=== PATIENT | male | born 1945 | race Caucasian/White ===

== ENCOUNTER 2024-08-20 21:58 | Emergency (ER) | payer MEDICARE, SELFPAY ==
[2024-08-20 21:59] VITALS: BP 189/67; BMI 39.5
[2024-08-20 22:00] VITALS: BP 189/67
--- NOTE | 2024-08-20 22:08 | ED.GENMED ---
History of Present Illness
<MERLE Vargas - Last Filed: 08/21/24 03:24>
General
Chief Complaint: Weakness
Source: patient
Exam Limitations: none
Time Seen by Provider: 08/20/24 22:06
Nursing documentation reviewed up to this point in time: agreed with
History of Present Illness
History of Present Illness:
Patient is a 79yo M who presents to ED via EMS for weakness x1 hr. He was getting ready for bed when his legs suddenly felt weak and he fell to his knee. He states he dropped slowly and did not injury his knees. He was unable to get up once he went
down on knees. He denies dizziness, syncope, chest pain, and SOB. He states he feels fine currently sitting down and is able to move legs. He denies any recent drinking, smoking, or drug use. Reports taking medications as directed w/o missing doses.
Hx of herniated disc w/ R sided ablation about 4 wks ago. Procedure was successful w/o complication. Pt denies incr in back pain.
Past History
<MERLE Vargas - Last Filed: 08/21/24 03:24>
Past History
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
ED Past Surgical History: Other (traumatic loss of distal phalanxes in R hand 2-4 th fingers)
Social History
Tobacco: Non-smoker
Alcohol: None
Drug: None
Personal:
Living: with family
Employment: Employed (Part-time employed at a local [employer])
Family History
Family History: Other (reviewed and non-contributory)
Review of Systems
<MERLE Vargas - Last Filed: 08/21/24 03:24>
Review of Systems
Constitutional: Denies fever, fatigue or chills
EENT: Denies sore throat or runny nose
Respiratory: Denies cough or trouble breathing
Cardiac: Denies chest pain or palpitations
ABD/GI: Denies abdominal pain, nausea, vomiting, diarrhea or constipated
: Denies dysuria or incontinence
Musculoskeletal: Reports edema and back pain; Denies joint pain or muscle pain
Neurological: Reports weakness; Denies dizzy, headache or numbness
Phy Exam
<Margo Sanabria [facility] - Last Filed: 08/21/24 03:24>
General Physical Exam
General Presentation: no apparent distress
General age: appears stated age
General Skin: warm and dry
General Habitus: normal
General Mental: alert
Eye Exam
Eye Exam: PERRL
Cardiovascular Exam
Cardiovascular Exam: regular rate/rhythm, no edema, no gallop and no murmur
Heart Sounds: distant
Pulmonary Exam
Pulmonary Exam: lungs clear, no respiratory distress, no rales, no crackles, no rhonchi and no wheezing
Gastrointestinal Exam
Gastrointestinal Exam: normal bowel sounds, non tender, soft and non distended
Neurological Exam
Neurological Exam: alert, oriented x3, no motor deficits and speech normal
Musculoskeletal Exam
Musculoskeletal Exam: full ROM and other (positive R leg straight leg raise )
Course
<Margo Sanabria [facility] - Last Filed: 08/21/24 03:24>
Orders/Labs/Results
Orders:
Orders
08/20/24 22:04
Electrocardiogram (*1) Urgent
Reason for Study: Fatigue / Weakness
Cardiac Monitoring- Treatment ONCE
EKG- Treatment ONCE
08/20/24 22:07
CMP [Comprehensive Metabolic Panel] Urgent
Complete Blood Count/With Diff Urgent
Urinalysis Reflex To Culture Urgent
Date Specimen was Collected: 08/20/24
Time Specimen was Collected: 22:05
Urine Microscopic Reflex Cult Urgent
08/20/24 23:24
0.9% Sodium Chloride 1000 ml [Nss] 1,000 ml IV BOLUS
08/21/24 00:59
Bedside Glucose Monitoring-ONCE As Directed
08/21/24 01:15
Add On- LAB Urgent
Tests Added?: beta hydroxybuterate
08/21/24 01:29
Insulin Human Regular [Novolin R] 10 units IV NOW STA
Abnormal Lab Results
08/20/24 08/21/24 08/21/24
22:07 01:01 EST 02:23
RBC 3.51 L 10^6/uL
(4.70-6.10)
Hgb 10.9 L g/dL
(13.0-18.0)
Hct 31.1 L %
(39.0-52.0)
MCH 31.1 H pg
(27.0-31.0)
MPV 10.9 H fL
(7.4-10.4)
Absolute Lymphs (auto) 1.0 L 10^3/uL
(1.2-3.4)
Neutrophils % 78.1 H %
(42.2-75.2)
Lymphocytes % 12.9 L %
(20.5-51.1)
BUN 49 H mg/dl
(9-20)
Creatinine 2.1 H mg/dL
(0.7-1.3)
Glucose 415 H mg/dl
(70-99)
Ur Occult Blood Reflex 1+ A
(Negative)
Urine Glucose 3+ A
(Negative)
Urine Albumin (Reflex) 2+ A
(Neg - Trace)
POC Glucose 354 H mg/dl 231 H mg/dl
(70-99) (70-99)
08/20/24 22:07
08/20/24 22:07
Vital Signs
Initial and Last Documented VS:
Initial Vital Signs
Temp Pulse Resp BP Pulse Ox
97.5 F 71 20 189/67 96
08/20/24 21:59 08/20/24 21:59 08/20/24 21:59 08/20/24 21:59 08/20/24 21:59
Last Documented Vital Signs
Temp Pulse Resp BP Pulse Ox
97.5 F 61 17 159/57 99
08/20/24 21:59 08/21/24 03:00 08/21/24 02:15 08/21/24 03:00 08/21/24 03:00
<Jim Biswas, - Last Filed: 08/21/24 02:58>
Orders/Labs/Results
Orders:
Orders
08/20/24 22:04
Electrocardiogram (*1) Urgent
Reason for Study: Fatigue / Weakness
Cardiac Monitoring- Treatment ONCE
EKG- Treatment ONCE
08/20/24 22:07
CMP [Comprehensive Metabolic Panel] Urgent
Complete Blood Count/With Diff Urgent
Urinalysis Reflex To Culture Urgent
Date Specimen was Collected: 08/20/24
Time Specimen was Collected: 22:05
Urine Microscopic Reflex Cult Urgent
08/20/24 23:24
0.9% Sodium Chloride 1000 ml [Nss] 1,000 ml IV BOLUS
08/21/24 00:59
Bedside Glucose Monitoring-ONCE As Directed
08/21/24 01:15
Add On- LAB Urgent
Tests Added?: beta hydroxybuterate
08/21/24 01:29
Insulin Human Regular [Novolin R] 10 units IV NOW STA
Abnormal Lab Results
08/20/24 08/21/24 08/21/24
22:07 01:01 EST 02:23
RBC 3.51 L 10^6/uL
(4.70-6.10)
Hgb 10.9 L g/dL
(13.0-18.0)
Hct 31.1 L %
(39.0-52.0)
MCH 31.1 H pg
(27.0-31.0)
MPV 10.9 H fL
(7.4-10.4)
Absolute Lymphs (auto) 1.0 L 10^3/uL
(1.2-3.4)
Neutrophils % 78.1 H %
(42.2-75.2)
Lymphocytes % 12.9 L %
(20.5-51.1)
BUN 49 H mg/dl
(9-20)
Creatinine 2.1 H mg/dL
(0.7-1.3)
Glucose 415 H mg/dl
(70-99)
Ur Occult Blood Reflex 1+ A
(Negative)
Urine Glucose 3+ A
(Negative)
Urine Albumin (Reflex) 2+ A
(Neg - Trace)
POC Glucose 354 H mg/dl 231 H mg/dl
(70-99) (70-99)
08/20/24 22:07
08/20/24 22:07
Vital Signs
Initial and Last Documented VS:
Initial Vital Signs
Temp Pulse Resp BP Pulse Ox
97.5 F 71 20 189/67 96
08/20/24 21:59 08/20/24 21:59 08/20/24 21:59 08/20/24 21:59 08/20/24 21:59
Last Documented Vital Signs
Temp Pulse Resp BP Pulse Ox
97.5 F 61 17 159/57 99
08/20/24 21:59 08/21/24 03:00 08/21/24 02:15 08/21/24 03:00 08/21/24 03:00
<ST AliciaDE - Last Filed: 08/21/24 03:24>
MDM/Problems Addressed
Differential Diagnosis Includes:
anemia, arrhythmia, lumbar radiculopathy
<Jim Biswas DO - Last Filed: 08/21/24 02:58>
MDM/Problems Addressed
Differential Diagnosis Includes:
anemia, arrhythmia, lumbar radiculopathy, hyperglycemia
Chronic conditions affecting care: DM and HTN
<MERLE Vargas - Last Filed: 08/21/24 03:24>
*Critical Care Note
Total Time (30-74mins, 75-104mins- exclusive of procedures): Not Applicable
ED Attending Note
<MERLE Vargas - Last Filed: 08/21/24 03:24>
-
Portions of this chart may have been created with voice recognition software.� Occasional wrong word or��sound alike� substitutions may have occurred due to the inherent limitations of voice recognition software.
<Jim Biswas DO - Last Filed: 08/21/24 02:58>
ED Attending Note
Patient seen and examined by attending physician: Yes
I performed the substantive portion of visit, reviewed & personally made and approve the management plan that is documented in note by myself or JOSE.: Yes
ED Attending Note:
Pleasant 79-year-old male presents to the emergency department from home after an episode of weakness. Patient reported weakness and went down on his knees. He denies head injury or loss of consciousness. He was able to stand shortly thereafter.
Patient diabetic but states he missed his evening dose of glipizide tonight. Patient reports no complaints at this time. Is accompanied by his . Patient was seen in conjunction with the PA student. I have reviewed and agree with the history
and treatment plan presented. On my independent physical exam, patient is awake, alert, and oriented x3 minimal acute distress. Skin is warm and dry. Heart is regular rate and rhythm. Lungs are clear bilaterally no signs of trauma to the lower
extremities.
Blood sugar is elevated.
Blood sugar rechecked after insulin. Patient was able to ambulate without issue. Patient to be discharged home with close monitoring of blood sugars by family.
Discharge Plan
Departure
Patient Disposition: Home (Routine Discharge)
Date of Disposition: 08/21/24
Time of Disposition: 02:57
Patient with high blood pressure during this ER visit?: Yes
Condition: Good
Covid-19: Not Applicable
Discharge Problem:
Hyperglycemia, Weakness of both lower extremities
Instructions: Generalized Weakness (DC), High Blood Sugar, Adult ED, BLOOD PRESSURE
Prescriptions:
No Action
fenofibrate nanocrystallized 145 MG tablet
145 mg PO DAILY
budesonide 8.43 ML spray,non-aerosol
8.43 ml NS PRN PRN (Reason: pollen)
clopidogrel 75 MG tablet
75 mg PO DAILY Qty: 30 0RF
furosemide 20 MG tablet
20 mg PO BID AT 0800,1600 Qty: 60 0RF
valsartan [Diovan] 320 mg Tablet
320 mg PO DAILY
aspirin 81 mg Tablet
81 mg PO DAILY
insulin aspart U-100 [Novolog FlexPen U-100 Insulin] 100 unit/mL (3 mL) Insulin Pen
0 unit SC TID
Rx Instructions:
sliding scale
Levemir Flexpen 100 unit/mL (3 mL) Insulin Pen
30 unit SC HS
atorvastatin 80 MG tablet
80 mg PO HS
labetalol 100 MG tablet
400 mg PO BID
amlodipine 5 MG tablet
10 mg PO DAILY
Referrals:
Kirstie Caal MD [Family Provider] -
Activity Restrictions/Additional Instructions:
It was a pleasure meeting you and taking part in your care. We hope for your continued healing and wellness.
Please read discharge instructions in their entirety. However, they are for general education and may not describe your exact diagnosis at discharge. Information on your ER visit and medical conditions were discussed with you along with appropriate
follow up information...
If indicated, please take your medications as instructed and indicated on discharge paperwork.
Please schedule a follow up appointment as directed. Call to schedule an appointment
Please return to the emergency department with ANY change in, persisting, or worsening of symptoms. If any of your symptoms do not improve, or persist, or become more severe within 6-12 hours, please return to the emergency department for further
care.
Please return to the emergency department if you develop a headache, neck pain/stiffness, fever greater than 100.4F, chest pain, shortness of breath, persistent nausea, vomiting, slurred speech, difficulty walking, numbness/tingling, weakness, signs
of infection or any other symptoms that are worrisome to you.
If you have any questions or concerns please do not hesitate to call the Hospital at or E-mail me directly at [email or web address]
Interventions
Interventions:
*Risk Screen - Suicide Last Done: 08/20/24 21:59
*General Assessment Last Done: 08/20/24 21:59
*Neglect/Abuse Screening Last Done: 08/20/24 21:59
ED- Fall Risk Assessment Last Done: 08/20/24 21:59
*ED COVID-19 Vaccine History Last Done: 08/20/24 21:59
*Nursing Disposition Last Done: 08/21/24 03:17
ED- Cardiac Assessment Last Done: 08/20/24 22:31
ED- Neurological Assessment Last Done: 08/20/24 22:31
ED- Pulmonary Assessment Last Done: 08/20/24 22:31
Discharge Date and Time
Discharge Date/Time: 08/21/24 03:17
Print Language: CITIZEN OF [place]
[2024-08-20 22:12] LABS: % Basophils 0.7 % (0-2); % Eosinophils 1.8 % (0-6); % Immature Granulocytes 0.3 % (0-0.5); % Lymphocytes 12.9 % (20.5-51.1); % Monocytes 6.2 % (1.7-9.3); % Neutrophils 78.1 % (42.2-75.2); Absolute Basophils 0.1 10^3/uL (0-0.2); Absolute Eosinophils 0.1 10^3/uL (0-0.7); Absolute Monocytes 0.5 10^3/uL (0.1-0.6); Hematocrit 31.1 % (39.0-52.0); Hemoglobin 10.9 g/dL (13.0-18.0); Mean Corpuscular Hgb 31.1 pg (27.0-31.0); Mean Corpuscular Volume 88.6 fL (80.0-94.0); Mean Platelet Volume 10.9 fL (7.4-10.4); Nucleated Red Blood Cells % 0 % (-); Platelet Count 207 10^3/uL (130-400); Red Blood Cell Count 3.51 10^6/uL (4.70-6.10); Red Cell Dist. Width 13.2 % (11.5-14.5); White Blood Cell Count 7.6 10^3/uL (4.8-10.8)
[2024-08-20 22:34] LABS: ALT (SGPT) 24 U/L (0-50); AST (SGOT) 28 U/L (17-59); Albumin 4.3 g/dl (3.5-5.0); Alkaline Phosphatase 41 U/L (38-126); Blood Urea Nitrogen 49 mg/dl (9-20); Calcium 9.8 mg/dl (8.4-10.2); Carbon Dioxide 27 mmol/L (22-30); Chloride 100 mmol/L (98-107); Estimated Creatinine Clearance 34 ml/min; Glucose 415 mg/dl (70-99); Potassium 4.7 mmol/L (3.5-5.1); Sodium 141 mmol/L (135-145); Total Bilirubin 0.6 mg/dl (0.2-1.3); Total Protein 6.8 g/dl (6.3-8.2); eGFR 31.63
[2024-08-20 22:56] LABS: Urine Albumin 2+ (Neg - Trace); Urine Bilirubin Negative (Negative); Urine Character Clear (Clear); Urine Color Yellow; Urine Glucose 3+ (Negative); Urine Ketone Negative (Negative); Urine Leukocyte Negative (Negative); Urine Nitrite Negative (Negative); Urine Occult Blood 1+ (Negative); Urine Urobilinogen Negative (Neg - 1+)
[2024-08-20 23:16] LABS: Urine Red Blood Cell 0-2 /HPF (0-2); Urine Squamous Cell 0-2 /LPF (Few); Urine White Cell 0-2 /HPF (0-5)
[2024-08-20 23:32] VITALS: BP 194/70
[2024-08-20] MEDS: NSS 1000 IV (23:32)
[2024-08-21] VITALS: BP 177/62
[2024-08-21 01:00] VITALS: BP 157/58; BP 172/77
[2024-08-21 01:03] LABS: Glucose - Point of Care 354 mg/dl (70-99)
[2024-08-21] MEDS: NOVOLIN R 10 UNITS IV (01:35)
[2024-08-21 02:00] VITALS: BP 157/58
[2024-08-21 02:24] LABS: Glucose - Point of Care 231 mg/dl (70-99)
[2024-08-21 03:00] VITALS: BP 159/57
== END 2024-08-21 03:17 | disposition home or self-care (01) ==
LOC: EMR 21:58
PROVIDERS: Student in an Organized Health Care Education/Training Program; EMERGENCY PHYSICIAN Student in an Organized Health Care Education/Training Program; FAMILY PHYSICIAN Family Medicine
DX: M62.81 Muscle weakness (generalized) (principal); E11.65 Type 2 diabetes mellitus with hyperglycemia; M54.9 Dorsalgia, unspecified; R60.9 Edema, unspecified; W18.39XA Other fall on same level, initial encounter; I10 Essential (primary) hypertension; Z86.73 Personal history of transient ischemic attack (TIA), and cerebral infarction without residual deficits; Z79.82 Long term (current) use of aspirin; Z88.8 Allergy status to other drugs, medicaments and biological substances
CPT/HCPCS: 99284; 96374; 96361 ×2; 80053; 81003; 81015; 82962; 85025; 93005

== ENCOUNTER → 2025-02-07 06:43 | Outpatient (REF) | payer MEDICARE, SELFPAY | LOC: PAVMRI 06:43 | PROVIDERS: ATTENDING PHYSICIAN Physician Assistant Surgical; FAMILY PHYSICIAN Family Medicine | DX: M48.062 Spinal stenosis, lumbar region with neurogenic claudication (principal); M54.50 Low back pain, unspecified; M43.16 Spondylolisthesis, lumbar region | CPT/HCPCS: 72148 ==

== ENCOUNTER 2025-05-15 14:22 | Inpatient (IN) | payer MEDICARE, SELFPAY ==
[2025-05-14] VITALS (12 sets, daily range): BP systolic 116–165; BP diastolic 46–73; PULSE 75; O2SAT 98; BMI 33.4
--- NOTE | 2025-05-14 09:10 | ED.GENMED ---
History of Present Illness
General
Chief Complaint: Fall
Source: patient and family
Time Seen by Provider: 05/14/25 08:19
History of Present Illness
History of Present Illness:
Note:
CHIEF COMPLAINT(S)
Falls and leg weakness.
HISTORY OF PRESENT ILLNESS
The patient is a 80-year-old male who presented to the emergency department following a fall this morning. He reported that he was awake and in the living room when the fall occurred. The patient has a history of falls and has been evaluated
previously, with recommendations for physical therapy, which he has been undertaking. The patient reports ongoing difficulty in ambulating and requires the use of a walker due to weakness in the legs. Over the past three days, he has felt unable to
rely on his legs due to the weakness, which has led to calling 911 for assistance. The patient had received injections for back pain in the past and was treated with cortisone in February, which provided some relief. He experienced a fall in December after
missing a step at a concert, contributing to his current issues. Despite interventions, the weakness and falls persist. The patient is under the care of an orthopedist remotely, but has not seen an orthopedist locally. The family has been advised to
seek emergency care should another fall occur.
ADDITIONAL HISTORY OBTAINED FROM SOURCES OTHER THAN THE PATIENT
The patients spouse provided information regarding previous medical interventions and the timeline of events leading to the current visit. She highlighted the difficulty in accessing care and the communication issues experienced with healthcare
providers remotely.
EXTERNAL RECORDS REVIEWED
Records indicate that he had a cortisone injection in February, which alleviated some of the back pain. In December, he experienced a significant fall. These records align with his initial complaint of leg weakness and recurrent falls.
CHRONIC MEDICAL CONDITIONS SIGNIFICANTLY AFFECTING CARE
The patient has a history of back problems for which he receives injections.
SOCIAL DETERMINANTS AFFECTING HEALTH
The patient relies on family for care and has difficulty accessing healthcare providers locally, which impacts follow-up and management of his condition.
REVIEW OF SYSTEMS
- Musculoskeletal: Recurrent falls, leg weakness.
- Neurological: No focal deficits noted, but persistent weakness in the legs.
PHYSICAL EXAM
- General: Alert and oriented to person, place, and time; afebrile.
- Head: Normocephalic and atraumatic.
- Cardiovascular: Regular rate and rhythm, no murmurs, rubs, or gallops.
- Respiratory: Clear breath sounds bilaterally, no respiratory distress.
- Abdomen: Soft, non-tender.
- Musculoskeletal: Normal range of motion and strength in all extremities, no cervical spine tenderness or deformity.
- Neurological: Moves all extremities without deficit; the absence of significant focal neurological deficits noted on examination.
(Nursing notes reviewed and vital signs reviewed.)
PROBLEM LIST
Acute Problems:
- Falls
- Leg weakness
Chronic Problems:
- Chronic back pain
PLAN
- Obtain imaging to assess for any acute changes that may have contributed to the fall, focusing on the head and back.
- Consider potential referral to a local orthopedist or neurologist for further evaluation and management of the leg weakness and frequent falls.
- Discuss with the patient and family potential benefits of additional physical therapy and assessment to improve mobility and reduce fall risk.
DIFFERENTIAL DIAGNOSIS
The Differential Diagnosis includes, in no particular order and is not limited to:
- Peripheral neuropathy
- Neurodegenerative disease
- Spinal stenosis
- Osteoarthritis
- Parkinson�s disease
- Cerebrovascular accident
- Orthostatic hypotension
- Acute inner ear disorder
- Myopathy
- Medication side effects
CARE-UPDATE
05/14/25 - 15:33
The patient has been assessed by physical therapy, who recommend inpatient rehabilitation due to observed weakness and difficulty walking. Case management has been unable to secure a placement for the patient at this time, indicating that the
patient remains unsafe for discharge. Admission by the hospitalist is advised.
Disposition:
SUMMARY OF ENCOUNTER
The patient, a 80-year-old male, presented to the emergency department following a fall at home. He has experienced ongoing leg weakness, requiring a walker for ambulation. Despite prior interventions including physical therapy and a cortisone
injection for back pain, the weakness persists, contributing to recurrent falls. Emergency care was sought after he felt unable to rely on his legs over the past three days.
DISPOSITION
Admission by the hospitalist is advised for inpatient rehabilitation due to observed weakness and difficulty walking.
PLAN
Obtain imaging to assess for any acute changes contributing to falls, potentially refer to a local orthopedist or neurologist for further evaluation, and expand physical therapy to improve mobility and reduce fall risk.
MEDICAL DECISION MAKING
-Number and Complexity of Problems Addressed: Chronic conditions affecting care include chronic back pain.
Differential Diagnoses considered were peripheral neuropathy, neurodegenerative disease, spinal stenosis, osteoarthritis, Parkinson�s disease, cerebrovascular accident, orthostatic hypotension, acute inner ear disorder, myopathy, and medication side
effects.
-Data:
Category 1: Clinical information was obtained from an independent historian, the patients spouse, and external medical records were reviewed, which indicated previous falls and a cortisone injection for back pain.
Category 2: Independent interpretation is pending from imaging studies focused on head and back to assess for acute changes.
Category 3: Discussions were had regarding management with the hospitalist due to the patients persistent weakness and need for enhanced physical support and care coordination locally.
DIAGNOSIS
Weakness, multiple falls (R29.6), Chronic back pain (M54.5).
Past History
Past History
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
ED Past Surgical History: Other (traumatic loss of distal phalanxes in R hand 2-4 th fingers)
Social History
Tobacco: Non-smoker
Alcohol: None
Drug: None
Personal:
Living: with family
Employment: Employed (Part-time employed at a local [employer])
Family History
Family History: Other (reviewed and non-contributory)
Phy Exam
Physical Exam
Physical Exam:
.
Course
Orders/Labs/Results
Orders:
Orders
05/14/25 09:02
CT Head W/o Iv Contrast Urgent
Comment:
Reason For Exam: falls
Lumbar Spine Complete, 4 View [CR Lumbar Spine Comp Min 4 Vw*] Urgent
Comment:
Reason For Exam: falls, low back pain
Physical Therapy Consult [Pt Eval And Treat] Urgent
Activity Level: Out of Bed-Early Mobility
05/14/25 12:16
Case Management Consult ONCE
Case Management Consult: Discharge Planning
Comment: rehab placement
05/14/25 14:04
IV Insert/Care/Rem.- Treatment PRN
05/14/25 14:44
Complete Blood Count/With Diff Urgent
Comprehensive Metabolic Panel Urgent
Abnormal Lab Results
05/14/25
14:44
RBC 3.66 L 10^6/uL
(4.70-6.10)
Hgb 11.4 L g/dL
(13.0-18.0)
Hct 34.7 L %
(39.0-52.0)
MCV 94.8 H fL
(80.0-94.0)
MCH 31.1 H pg
(27.0-31.0)
MCHC 32.9 L g/dL
(33.0-37.0)
MPV 10.8 H fL
(7.4-10.4)
BUN 52 H mg/dl
(9-20)
Creatinine 2.2 H mg/dL
(0.7-1.3)
Glucose 225 H mg/dl
(70-99)
Total Protein 6.2 L g/dl
(6.3-8.2)
05/14/25 14:44
05/14/25 14:44
Vital Signs
Initial and Last Documented VS:
Initial Vital Signs
Temp Pulse Resp BP Pulse Ox
98.6 F 65 16 145/61 97
05/14/25 07:29 05/14/25 07:29 05/14/25 07:29 05/14/25 07:29 05/14/25 07:29
Last Documented Vital Signs
Temp Pulse Resp BP Pulse Ox
98.6 F 64 10 134/64 100
05/14/25 07:29 05/14/25 13:30 05/14/25 13:30 05/14/25 11:48 05/14/25 12:30
*Pulse Oximetry
SaO2: 97
Oxygen Mode of Delivery: Room air
Patient hypoxic: no
*Critical Care Note
Total Time (30-74mins, 75-104mins- exclusive of procedures): Not Applicable
Update Note
Update Note:
pt had cva since ct head in 2021
ED Attending Note
-
Portions of this chart may have been created with voice recognition software.� Occasional wrong word or��sound alike� substitutions may have occurred due to the inherent limitations of voice recognition software.
Discharge Plan
Departure
Patient Disposition: Admit
Date of Disposition: 05/14/25
Time of Disposition: 15:33
Admit to: Med/Surg
Presentation/result/management discussed w/ accepting MD/DO: Hospitalist
Patient with high blood pressure during this ER visit?: Yes
Condition: Fair
Discharge Problem:
Weakness, Falls
Prescriptions:
No Action
fenofibrate nanocrystallized 145 MG tablet
145 mg PO DAILY
budesonide 8.43 ML spray,non-aerosol
8.43 ml NS PRN PRN (Reason: pollen)
clopidogrel 75 MG tablet
75 mg PO DAILY Qty: 30 0RF
furosemide 20 MG tablet
20 mg PO BID AT 0800,1600 Qty: 60 0RF
valsartan [Diovan] 320 mg Tablet
320 mg PO DAILY
aspirin 81 mg Tablet
81 mg PO DAILY
insulin aspart U-100 [Novolog FlexPen U-100 Insulin] 100 unit/mL (3 mL) Insulin Pen
0 unit SC TID
Rx Instructions:
sliding scale
Levemir Flexpen 100 unit/mL (3 mL) Insulin Pen
30 unit SC HS
atorvastatin 80 MG tablet
80 mg PO HS
labetalol 100 MG tablet
400 mg PO BID
amlodipine 5 MG tablet
10 mg PO DAILY
Referrals:
Kirstie Caal MD [Family Provider, Family Practice]
Interventions
Interventions:
*Risk Screen - Suicide Last Done: 05/14/25 07:29
*General Assessment Last Done: 05/14/25 10:14
*Neglect/Abuse Screening Last Done: 05/14/25 07:29
*ED- Fall Risk Assessment Last Done: 05/14/25 08:45
*ED COVID-19 Vaccine History Last Done: 05/14/25 08:45
ED-Musculoskeletal Assessment Last Done: 05/14/25 08:45
ED- Neurological Assessment Last Done: 05/14/25 08:45
ED-Skin Assessment Last Done: 05/14/25 08:45
Discharge Date and Time
Print Language: CROAT[place]
--- NOTE | 2025-05-14 14:07 | CM ---
Received CM consult, chart reviewed and met with pt and his bedside in ED. Pt lives with his in 1 story home in [facility], [address]. Pt is independent in ADLs and personal care at baseline, ambulates with walker. Has had 3 falls in
past 3 days, multiple falls in past 6 months. Per pt has ongoing back issues, had a steroid injection in February. Pt does not currently have an Orthopedist, has seen a PA at [facility]. Is also followed by Dr Medina [facility].
His does not feel comfortable taking him home. Pt was seen by PT who recommended STR. We discussed SNF for STR, also discussed Medicare 3 night requirement. states they cannot afford to private pay for SNF. Also discussed home VN with
PT/OT but she is afraid he will fall again and require 911 assistance to get him back up.
Discussed with Dr Uribe, will plan for observation admission.
Discharge plan: Hopefully STR, please follow up to see if pt qualifies for [employer] waiver.
[2025-05-14 14:55] LABS: Hematocrit 34.7 % (39.0-52.0); Hemoglobin 11.4 g/dL (13.0-18.0); Mean Corp Hgb Conc. 32.9 g/dL (33.0-37.0); Mean Corpuscular Volume 94.8 fL (80.0-94.0); Nucleated Red Blood Cells % 0 % (-); Platelet Count 200 10^3/uL (130-400); Red Cell Dist. Width 13.2 % (11.5-14.5)
[2025-05-14 15:18] LABS: ALT (SGPT) 20 U/L (0-50); AST (SGOT) 26 U/L (17-59); Albumin 3.9 g/dl (3.5-5.0); Alkaline Phosphatase 45 U/L (38-126); Blood Urea Nitrogen 52 mg/dl (9-20); Calcium 9.1 mg/dl (8.4-10.2); Carbon Dioxide 23 mmol/L (22-30); Chloride 107 mmol/L (98-107); Estimated Creatinine Clearance 29 ml/min; Glucose 225 mg/dl (70-99); Potassium 4.3 mmol/L (3.5-5.1); Sodium 141 mmol/L (135-145); Total Protein 6.2 g/dl (6.3-8.2); eGFR 29.72
--- NOTE | 2025-05-14 15:37 | HPS.HSE ---
Family Physician
-
Family Physician: Kirstie Caal
Chief Complaint
-
Lower Extremity Weakness and Frequent Falls
History of Present Illness
Patient is a 80 y/o male past medical history of prior stroke, hypertension, hyperlipidemia, diabetes mellitus and chronic kidney disease who presents with lower extremity weakness and frequent falls. Patient sustained a fall in December. Since that
time patient has been experiencing increased bilateral lower extremity weakness and urinary incontinence. Patient did have a Lumbar Spine MRI in January following the fall which did reveal spinal stenosis. Unfortunately patient continued with
weakness which has resulted in multiple falls this week. EMS needed to be to get him off the floor. Following the fall today patient's brought him to the emergency department for evaluation. Patient denies any numbness/tingling in the legs or
perinreal area.
Medical History
Past Medical History
Past Medical History: Reports Other
Additional Past Medical History:
Stroke
Diabetes Mellitus, Type II
Hypertension
Hyperlipidemia
CKD III/
Past Surgical History: Reports Other
Additional Past Surgical History:
Right Finger Amputations
Social History
Tobacco: Former Smoker
Alcohol: Occasional
Family History
Family History: Not pertinent
Allergies / Home Medications
Allergies reflects when Allergies were last updated in [facility].
Home Medications with original date entered in [facility]
Allergy/Medication List:
Allergies
Allergy/AdvReac Type Severity Reaction Status Date / Time
procaine (From Novocain) Allergy Unknown Verified 08/20/24 21:59
Home Medications
budesonide 32 mcg/actuation nasal spray 8.43 ml NS PRN PRN pollen 03/06/18
fenofibrate nanocrystallized 145 mg tablet 145 mg PO DAILY 03/06/18
clopidogrel 75 mg tablet 75 mg PO DAILY ##30 03/12/18
amlodipine 5 mg tablet 5 mg PO DAILY 07/03/22
aspirin 81 mg tablet 81 mg PO DAILY 07/03/22
atorvastatin 80 mg tablet 80 mg PO HS 07/03/22
insulin aspart U-100 100 unit/mL (3 mL) subcutaneous pen (Novolog FlexPen U-100 Insulin aspart) 0 unit SC TID 07/03/22
valsartan 320 mg tablet (Diovan) 320 mg PO DAILY 07/03/22
empagliflozin 25 mg tablet (Jardiance) 25 mg PO DAILY 05/14/25
furosemide 20 mg tablet 10 mg PO BID AT 0800,1600 05/14/25
insulin glargine 100 unit/mL (3 mL) subcutaneous pen (Lantus Solostar U-100 Insulin) 30 unit SC HS 05/14/25
labetalol 200 mg tablet 400 mg PO BID 05/14/25
Review of Systems
-
A 12 point ROS was completed and negative except as noted: Yes
Constitutional: Denies Fever or Chills
Respiratory: Denies Cough or Trouble Breathing
Cardiac: Denies Chest Pain or Palpitations
Musculoskeletal: Reports See HPI
Physical Exam
Vital Signs
Vital Signs
Temp Pulse Resp BP Pulse Ox
98.6 F 64 10 134/64 100
05/14/25 07:29 05/14/25 13:30 05/14/25 13:30 05/14/25 11:48 05/14/25 12:30
Physical Exam
General: Comfortable and Conversant
HEENT: Anicteric and Moist mucous membranes
Respiratory: Clear and Non Labored Respirations
Cardiac: S1/S2 and Regular Rhythm
GI: Soft and Non Tender
Rectal: Deferred by Provider
Musculoskeletal: No Clubbing and No Cyanosis
Skin: Warm and Dry
Neuro: Awake, Alert, Oriented and No Motor Deficits (Intact strength bilateral lower extremities)
Psych: Calm
Laboratory Results
-
05/14/25 14:44
05/14/25 14:44
Laboratory Results
Total Bilirubin 0.8 mg/dl (0.2-1.3) 05/14/25 14:44
AST 26 U/L (17-59) 05/14/25 14:44
ALT 20 U/L (0-50) 05/14/25 14:44
Alkaline Phosphatase 45 U/L (38-126) 05/14/25 14:44
Data Reviewed
-
Lab Data: Labs Reviewed by me
Old Records: Reviewed
Impression/Plan
-
Ambulatory Dysfunction secondary to Bilateral Lower Ext Weakness in setting of Chronic Spinal Stenosis
-No need for repeat MRI at this time
-Consult PT/OT
-Consult CM for SNF
Prior Stroke without residual deficits
-Continue aspirin and Plavix
Diabetes Mellitus, Type II
-Continue Lantus and Novolog
-Continue Jardiance
-Monitor sugars and continue coverage insulin
Hypertension
-Continue amlodipine, labetalol and Diovan
Hyperlipidemia
-Continue atorvastatin and fenofibrate
CKD III/
-Creatinine at baseline
DVT proph: SC Heparin
Code Status: Full Code
--- NOTE | 2025-05-14 16:20 | W.PN.UPDATE ---
Update Note
Progress Note Update
This is an addendum to H&P written by Radha Loza on 05/14/2025. �Patient seen and examined independently with PA.
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 �History of prior back pain improved with spinal
epidural injections. �Has been undergoing PT for ongoing weakness. �Had a fall in December with subsequent development of bilateral weakness and urinary incontinence since that time. �Had MRI lumbar spine in January of this year showing spinal
stenosis/degenerative disc disease without evidence of cord compression.
He is seeing urology for urinary incontinence and cystoscopy appears to be planned.
Vital signs normal. �Labs unremarkable. �Creatinine at baseline of 2.2, hemoglobin baseline of 11.4.
CT head shows no acute abnormality apart from focus of decreased density within the right paramedian purvi which could be foci of infarction. �There is also a millimeter focus of CSF density within the periventricular white matter likely small old
white matter infarct.
Lumbar spine x-ray shows no evidence of fracture.
Patient with ongoing bilateral leg weakness secondary to spinal stenosis. �Does not require repeat MRI lumbar spine. �No signs of new CVA.
Patient seen by PT and case management for rehab placement.
--- NOTE | 2025-05-14 18:37 | PTCARENOTE ---
Pt. arrived from ED via stretcher, pt. s/p with moderate assistance x 2 to bed. Pt. with no c/o pain at this time. at bedside, call pugh within reach. Will pass on to oncoming shift RN.
[2025-05-14] MEDS: TRANDATE 400 MG PO (20:05)
[2025-05-14 21:21] LABS: Glucose - Point of Care 206 mg/dl (70-99)
[2025-05-14] MEDS: LANTUS 0.3 UNITS SC (21:23)
[2025-05-14] MEDS: LIPITOR 80 MG PO (21:23)
[2025-05-14] MEDS: HEPARIN 5000 UNITS SC (23:03)
[2025-05-15 07:40] LABS: Glucose - Point of Care 176 mg/dl (70-99)
[2025-05-15 07:58] VITALS: BP 173/76
[2025-05-15] MEDS: NOVOLOG FLEXPEN 10 UNITS SC ×3 (07:58→16:43)
[2025-05-15] MEDS: NOVOLOG FLEXPEN-MODERATE RESISTANCE 1 UNITS SC (07:59)
[2025-05-15] MEDS: LASIX 10 MG PO ×2 (08:00→16:43)
[2025-05-15] MEDS: ASPIR LOW (ENTERIC COATED) 81 MG PO (08:00)
[2025-05-15] MEDS: HEPARIN 5000 UNITS SC ×2 (08:00→16:43)
[2025-05-15] MEDS: FARXIGA 10 MG PO (08:00)
[2025-05-15] MEDS: DIOVAN 320 MG PO (08:00)
[2025-05-15] MEDS: PLAVIX 75 MG PO (08:00)
[2025-05-15] MEDS: TRICOR 145 MG PO (08:00)
[2025-05-15] MEDS: NORVASC 5 MG PO (08:01)
[2025-05-15] MEDS: DESENEX/MITRAZOL/ZEASORB 1 APPLIC TOPICAL ×2 (08:01→20:59)
[2025-05-15] MEDS: TRANDATE 400 MG PO ×2 (08:44→21:00)
[2025-05-15 09:30] LABS: Glycohemoglobin (HgbA1c) 8.7 % (4.0-5.6)
--- NOTE | 2025-05-15 11:17 | WOUNDNOTE ---
GLUTEAL CLEFT VERTICAL AND B/L SACRUM
--- NOTE | 2025-05-15 11:20 | WOUNDNOTE ---
KAREL RN note: Patient admitted with Weakness and falls.
See H&P for complete history. Lives with Claudia.
PMH: Patient is a 80 y/o male past medical history of prior stroke, hypertension, hyperlipidemia, diabetes mellitus and chronic kidney disease who presents with lower extremity weakness and frequent falls.
Wound Location and type/assessment: Patient admitted with: ulcer on gluteal cleft vertical, suspect MASD vs deep dermal stage 2 PI. B/L sacrum with linear lines of darker discolored skin, where butt cheeks meet when sitting. Distal buttocks with
blanchable darker skin. Patient reports he sits allot at home on the couch and does not use an offloading cushion. at bedside states she has not looked at buttock but confirmed he does sit allot. Air chair cushion in use under sacrum. Heels are
blanchable red, nurse Jorge who assisted with turning will get a pillow to place under calves. R lower leg with cluster of bennett skin, old healed ulcer. Chart reports he went to wound center in 2019.
Appetite: Good.
Pressure redistribution devices in place: On Accumax, air cushion. Pressure ulcer prevention measures reviewed with patient, states he understands. Instructed patient frequent turning when in bed and can take air cushion home upon discharge.
Recommended to nurse Jorge to add air overlay to bed when next in chair if deems necessary.
Plan: Silicone foam applied to sacrum and gluteal cleft. Foam adhesives applied to heels.
Will confirm orders with hospitalist and updated nurse. Updated care plan and will follow as needed.
Note to case management of equipment requested for discharge: VN for wound care if can't do.
Recommend follow up at wound care center upon discharge.
[2025-05-15 12:04] LABS: Glucose - Point of Care 210 mg/dl (70-99)
[2025-05-15] MEDS: NOVOLOG FLEXPEN-MODERATE RESISTANCE 3 UNITS SC ×2 (12:46→16:44)
--- NOTE | 2025-05-15 14:03 | W.PN.HOSP.TC ---
Addendum entered and electronically signed by Olman Starks DO 05/16/25 15:13:
Yes, Gluteal cleft stage 2 pressure injury, POA
Original Note:
Today's Communication/Plan
-
Assessment / Plan
Assessment / Plan
General: No Apparent Distress, Comfortable and Conversant
HEENT: NormoCephalic, Moist mucous membranes, Atraumatic
Respiratory: Clear and Non Labored Respirations
Cardiac: S1/S2 and Regular Rhythm; No Rub or Gallop
GI: Soft, Non Tender, Non Distended and Normal Bowel Sounds
Musculoskeletal: No Edema, right finger amputation
Skin: Warm and dry
: NO Barrow
Neuro: Awake, Alert, Nonfocal/grossly intact
Psych: Calm and Intact Judgment/Insight
Mr. Chiu is a 80-year-old male with a medical history of stroke, hypertension, insulin-dependent diabetes mellitus, CKD stage IIIb, and lumbar spinal stenosis who presented with ambulatory dysfunction due to bilateral lower extremity weakness.
His symptoms began after a fall in December 2024 and have progressed since that time leading to multiple subsequent falls. He was seen by an orthopedist in February for treatment with cortisone injections but has not had recent follow-up. He has been
doing physical therapy. Over the past 3 days prior to arrival his lower extremity weakness has become more severe, now to the point where he is unable to ambulate even with assistance of his walker.
Lower extremity weakness:
- Suspect due to known lumbar spinal stenosis
- Will repeat lumbar MRI, if stable can follow-up as outpatient with neurosurgery
- PT/OT evaluation
Insulin-dependent diabetes mellitus:
- Continue long and short acting insulin, Jardiance
- Accu-Cheks
- Hemoglobin A1c 8.7% this admission, will need tighter blood glucose control, sliding scale as needed
Cerebrovascular disease:
- History of stroke with no residual deficits
- Continue aspirin and Plavix, high intensity statin
Hypertension:
- Continue home amlodipine 5 mg daily, valsartan 320 mg daily, and labetalol 40 mg twice daily
CKD stage III/IV:
- Function appears at baseline, monitor
DVT prophylaxis: Subcu heparin
CODE STATUS: Full code
Total time spent on today's encounter was 45 minutes
Anticipated Discharge: 24 - 48 hours
Subjective/Interval History
-
Date of Service: May 15, 2025
Patient was seen and examined at bedside this morning. Awaiting PT/OT evaluation considering he is here for ambulatory dysfunction.
Objective Data
-
Vital Signs:
Vital Signs
Temp Pulse Resp BP Pulse Ox
98.3 F 63 18 173/76 97
05/15/25 07:58 05/15/25 07:58 05/15/25 07:58 05/15/25 07:58 05/15/25 07:58
Review of Systems
-
History Source: Patient
All other systems: Reviewed and negative
Physical Exam
-
General: No Apparent Distress
[2025-05-15 15:46] VITALS: BP 149/62; PULSE 58; O2SAT 95
[2025-05-15 15:47] VITALS: BP 149/62; PULSE 56; O2SAT 95
[2025-05-15 16:20] VITALS: BP 149/62
[2025-05-15 16:35] LABS: Glucose - Point of Care 221 mg/dl (70-99)
--- NOTE | 2025-05-15 16:42 | CM ---
Addendum entered by Deisi Rosa 05/15/25 17:00:
Spouse would also like a referral to [facility], referral sent.
Original Note:
Chart reviewed and case investigator spoke with patient and spouse at bedside, and per physical therapy recommendation is for skilled placement option reviewed with patient and spouse and they have selected [facility], referral sent to [facility].
Plan; Skilled placement at [facility]. Referral sent to [facility], IMM completed and placed on chart.
--- NOTE | 2025-05-15 18:11 | PTCARENOTE ---
Pt changed from obs to inpatient status. CM working w/ family for placement to skilled rehab. Pt OOB to chair several times today. Walked to end of [place]ton w/ PT/OT. No complaints of pain. Using urinal but ineffectively. Seen by wound care and
suspect buttocks/sacrum breakdown is moisture related d/t incontinence issues.
[2025-05-15] MEDS: LIPITOR 80 MG PO (20:59)
[2025-05-15 21:25] LABS: Glucose - Point of Care 169 mg/dl (70-99)
[2025-05-15] MEDS: LANTUS 0.3 UNITS SC (22:49)
[2025-05-15 23:15] VITALS: BP 132/59
[2025-05-16] MEDS: HEPARIN 5000 UNITS SC ×4 (00:44→23:09)
[2025-05-16 07:30] VITALS: BP 172/62
[2025-05-16 08:11] LABS: Glucose - Point of Care 128 mg/dl (70-99)
[2025-05-16] MEDS: NOVOLOG FLEXPEN-MODERATE RESISTANCE SC (08:30)
[2025-05-16] MEDS: DIOVAN 320 MG PO (08:34)
[2025-05-16] MEDS: TRICOR 145 MG PO (08:34)
[2025-05-16] MEDS: LASIX 10 MG PO ×2 (08:35→16:56)
[2025-05-16] MEDS: PLAVIX 75 MG PO (08:35)
[2025-05-16] MEDS: TRANDATE 400 MG PO ×2 (08:35→20:31)
[2025-05-16] MEDS: NORVASC 5 MG PO (08:36)
[2025-05-16] MEDS: FARXIGA 10 MG PO (08:36)
[2025-05-16] MEDS: ASPIR LOW (ENTERIC COATED) 81 MG PO (08:36)
[2025-05-16] MEDS: NOVOLOG FLEXPEN 10 UNITS SC ×3 (09:48→16:57)
[2025-05-16] MEDS: DESENEX/MITRAZOL/ZEASORB 1 APPLIC TOPICAL ×2 (09:51→20:31)
[2025-05-16 11:15] VITALS: BP 152/62
[2025-05-16 11:28] LABS: Glucose - Point of Care 153 mg/dl (70-99)
[2025-05-16] MEDS: NOVOLOG FLEXPEN-MODERATE RESISTANCE 1 UNITS SC ×2 (12:40→16:57)
--- NOTE | 2025-05-16 15:00 | PN.CDI ---
CDI
- -
CDI:
Physician Documentation Request
Admit Date: 05/15/25 14:22
Dear Doctor Raudel,
Please review the following and provide your response in the progress notes.
Clinical Indicators:
05/15/25 11:20 - Wound Note
#Wound Location and type/assessment:
#...Patient admitted with: ulcer on gluteal cleft vertical,
#...suspect MASD vs deep dermal stage 2 PI.
#...B/L sacrum with linear lines of darker discolored skin,
#...where butt cheeks meet when sitting. Distal buttocks with blanchable darker skin.
Physician documentation of the type and location of wounds is required for compliant documentation. Based on the above clinical findings and your assessment, please provide the following in your progress note:
Yes, Gluteal cleft stage 2 pressure injury, POA
No, Gluteal cleft stage 2 pressure injury
Other (please specify)
1. Location of the ulcer/wound, including laterality.
2. Type (etiology) of ulcer/wound:
- Diabetic ulcer
- Arterial (ischemic) ulcer
- Traumatic wound
- Venous stasis ulcer
- Pressure (decubitus) ulcer
- Non-healing surgical wound
- Other
3. For a pressure ulcer, please also include the stage* of the ulcer:
- Stage 1 - Skin intact, non-blanchable redness
- Stage 2 - Partial thickness loss of dermis, includes intact or open blister
- Stage 3 - Full thickness tissue not including bone, tendon or muscle
- Stage 4 - Full thickness tissue loss, including exposed bone, tendon or muscle
- Unstageable - Full thickness loss in which the base of the ulcer is covered by slough (yellow, bennett, sal, green or brown) and/or eschar (bennett, brown or black) in the wound bed.
Use of terms such as suspected, likely, concern for, or probable (associated with a specific diagnosis that is being evaluated, monitored, or treated as if it exists) are acceptable and can be coded in the inpatient setting, when documented at the
time of discharge.
Thank you,
Pearl Vázquez RN BSN CCDS
CDI Specialist
Please contact via tiger text
Please use your independent medical judgment in providing your response.
*Source: National Pressure Ulcer Advisory Panel (NPUAP)
[2025-05-16 15:25] VITALS: BP 133/60
[2025-05-16 16:03] LABS: Glucose - Point of Care 193 mg/dl (70-99)
--- NOTE | 2025-05-16 16:18 | W.PN.HOSP.TC ---
Today's Communication/Plan
-
Assessment / Plan
Assessment / Plan
General: No Apparent Distress, Comfortable and Conversant
HEENT: NormoCephalic, Moist mucous membranes, Atraumatic
Respiratory: Clear and Non Labored Respirations
Cardiac: S1/S2 and Regular Rhythm; No Rub or Gallop
GI: Soft, Non Tender, Non Distended and Normal Bowel Sounds
Musculoskeletal: No Edema, right finger amputation
Skin: Warm and dry
: NO Barrow
Neuro: Awake, Alert, Nonfocal/grossly intact
Psych: Calm and Intact Judgment/Insight
Mr. Chiu is a 80-year-old male with a medical history of stroke, hypertension, insulin-dependent diabetes mellitus, CKD stage IIIb, and lumbar spinal stenosis who presented with ambulatory dysfunction due to bilateral lower extremity weakness.
His symptoms began after a fall in December 2024 and have progressed since that time leading to multiple subsequent falls. He was seen by an orthopedist in February for treatment with cortisone injections but has not had recent follow-up. He has been
doing physical therapy. Over the past 3 days prior to arrival his lower extremity weakness has become more severe, now to the point where he is unable to ambulate even with assistance of his walker.
Lower extremity weakness:
- Suspect due to known lumbar spinal stenosis
- Repeat lumbar MRI stable from previous, can follow-up as outpatient with neurosurgery/orthopedics
- PT/OT recommending SNF
Insulin-dependent diabetes mellitus:
- Continue long and short acting insulin, Jardiance
- Accu-Cheks
- Hemoglobin A1c 8.7% this admission, will need tighter blood glucose control, sliding scale as needed
Cerebrovascular disease:
- History of stroke with no residual deficits
- Continue aspirin and Plavix, high intensity statin
Hypertension:
- Continue home amlodipine 5 mg daily, valsartan 320 mg daily, and labetalol 40 mg twice daily
CKD stage III/IV:
- Function appears at baseline, monitor
DVT prophylaxis: Subcu heparin
CODE STATUS: Full code
Total time spent on today's encounter was 45 minutes
Anticipated Discharge: 24 - 48 hours
Subjective/Interval History
-
Date of Service: May 16, 2025
Patient was seen and examined at bedside this morning. Repeat MRI showed no change. Still planning SNF placement.
Objective Data
-
Vital Signs:
Vital Signs
Temp Pulse Resp BP Pulse Ox
97.7 F 64 16 133/60 99
05/16/25 15:25 05/16/25 15:25 05/16/25 15:25 05/16/25 15:25 05/16/25 15:25
I&O
05/15/25 05/16/25 05/17/25
06:59 06:59 06:59
Intake Total 720 / 720
Output Total 350 / 350
Balance 370 / 370
Review of Systems
-
History Source: Patient
All other systems: Reviewed and negative
Constitutional: Reports Weakness (Bilateral lower extremities)
Physical Exam
-
General: No Apparent Distress
[2025-05-16] MEDS: LIPITOR 80 MG PO (20:32)
[2025-05-16 21:18] LABS: Glucose - Point of Care 268 mg/dl (70-99)
[2025-05-16] MEDS: LANTUS 0.3 UNITS SC (22:13)
[2025-05-16 23:46] VITALS: BP 110/48
[2025-05-17 07:20] VITALS: BP 158/71
[2025-05-17 08:09] LABS: Glucose - Point of Care 88 mg/dl (70-99)
[2025-05-17] MEDS: ASPIR LOW (ENTERIC COATED) 81 MG PO (09:22)
[2025-05-17] MEDS: NORVASC 5 MG PO (09:22)
[2025-05-17] MEDS: PLAVIX 75 MG PO (09:22)
[2025-05-17] MEDS: FARXIGA 10 MG PO (09:22)
[2025-05-17] MEDS: LASIX 10 MG PO ×2 (09:23→16:06)
[2025-05-17] MEDS: HEPARIN 5000 UNITS SC (09:24)
[2025-05-17] MEDS: DIOVAN 320 MG PO (09:25)
[2025-05-17] MEDS: TRICOR 145 MG PO (09:25)
[2025-05-17] MEDS: NOVOLOG FLEXPEN 10 UNITS SC ×3 (09:28→17:17)
[2025-05-17] MEDS: DESENEX/MITRAZOL/ZEASORB 1 APPLIC TOPICAL ×2 (09:33→19:55)
[2025-05-17] MEDS: TRANDATE PO (09:36)
[2025-05-17] MEDS: NOVOLOG FLEXPEN-MODERATE RESISTANCE SC ×2 (11:03→17:16)
[2025-05-17 11:50] LABS: Glucose - Point of Care 180 mg/dl (70-99)
--- NOTE | 2025-05-17 12:04 | PTCARENOTE ---
Received patient this am AAOX3. Pt had two bowel movements this am. Pt had some blood in stool secondary to straining. Pt stated that he normally takes colace at home. Dr. Starks made aware. Colace ordered by . Made patient comfortable, Cont
to assess pt status.
[2025-05-17 12:30] VITALS: BP 122/72
[2025-05-17] MEDS: NOVOLOG FLEXPEN-MODERATE RESISTANCE 1 UNITS SC (12:42)
[2025-05-17] MEDS: COLACE 100 MG PO ×2 (12:43→19:55)
[2025-05-17 13:39] VITALS: BP 110/59; BP 153/60; PULSE 68; O2SAT 99
--- NOTE | 2025-05-17 13:41 | W.PN.HOSP.TC ---
Today's Communication/Plan
-
Assessment / Plan
Assessment / Plan
General: No Apparent Distress, Comfortable and Conversant
HEENT: NormoCephalic, Moist mucous membranes, Atraumatic
Respiratory: Clear and Non Labored Respirations
Cardiac: S1/S2 and Regular Rhythm; No Rub or Gallop
GI: Soft, Non Tender, Non Distended and Normal Bowel Sounds
Musculoskeletal: No Edema, right finger amputation
Skin: Warm and dry
: NO Barrow
Neuro: Awake, Alert, Nonfocal/grossly intact
Psych: Calm and Intact Judgment/Insight
Mr. Chiu is a 80-year-old male with a medical history of stroke, hypertension, insulin-dependent diabetes mellitus, CKD stage IIIb, and lumbar spinal stenosis who presented with ambulatory dysfunction due to bilateral lower extremity weakness.
His symptoms began after a fall in December 2024 and have progressed since that time leading to multiple subsequent falls. He was seen by an orthopedist in February for treatment with cortisone injections but has not had recent follow-up. He has been
doing physical therapy. Over the past 3 days prior to arrival his lower extremity weakness has become more severe, now to the point where he is unable to ambulate even with assistance of his walker.
Lower extremity weakness:
- Suspect due to known lumbar spinal stenosis
- Repeat lumbar MRI stable from previous, can follow-up as outpatient with neurosurgery/orthopedics
- PT/OT recommending SNF
- His weakness is improving but still significantly limiting his ability to ambulate
Insulin-dependent diabetes mellitus:
- Continue long and short acting insulin, Jardiance
- Accu-Cheks, additional sliding scale as needed
- Hemoglobin A1c 8.7% this admission
Cerebrovascular disease:
- History of stroke with no residual deficits
- Continue aspirin and Plavix, high intensity statin
Hypertension:
- Continue home amlodipine 5 mg daily, valsartan 320 mg daily, and labetalol 40 mg twice daily
CKD stage III/IV:
- Function appears at baseline, monitor
DVT prophylaxis: Subcu heparin
CODE STATUS: Full code
Total time spent on today's encounter was 35 minutes
Anticipated Discharge: 24 - 48 hours
Subjective/Interval History
-
Date of Service: May 17, 2025
Patient was seen and examined at bedside this morning. No acute distress. Leg weakness and urinary incontinence still present but improved.
Objective Data
-
Vital Signs:
Vital Signs
Temp Pulse Resp BP Pulse Ox
97.5 F 73 16 122/72 97
05/17/25 07:20 05/17/25 12:30 05/17/25 07:20 05/17/25 12:30 05/17/25 09:30
I&O
05/16/25 05/17/25 05/18/25
06:59 06:59 06:59
Intake Total 720 / 720 840 / 840
Output Total 350 / 350 350 / 350
Balance 370 / 370 490 / 490
Review of Systems
-
History Source: Patient
All other systems: Reviewed and negative
Constitutional: Reports Weakness
Genitourinary: Reports Incontinence
Physical Exam
-
General: No Apparent Distress
[2025-05-17 15:20] VITALS: BP 153/69
[2025-05-17 16:23] LABS: Glucose - Point of Care 87 mg/dl (70-99)
[2025-05-17 16:33] VITALS: BP 134/63; BP 153/70; PULSE 66; O2SAT 97
--- NOTE | 2025-05-17 16:36 | PTCARENOTE ---
Pt urinated in urinal. Urine is bloody tinged. Dr. Starks made aware. 1600 SQ heparin held. Cont to assess patient status.
[2025-05-17] MEDS: HEPARIN SC ×2 (16:38→23:46)
[2025-05-17] MEDS: TRANDATE 400 MG PO (19:55)
[2025-05-17 21:08] LABS: Glucose - Point of Care 106 mg/dl (70-99)
[2025-05-17] MEDS: LANTUS 0.15 UNITS SC (22:55)
[2025-05-17] MEDS: LIPITOR 80 MG PO (23:01)
[2025-05-17] MEDS: LANTUS SC (23:01)
[2025-05-17 23:28] VITALS: BP 140/63
--- NOTE | 2025-05-17 23:28 | W.PN.UPDATE ---
Update Note
Progress Note Update
RN reported the patient is having bloody stools (patiet did not have a bowel movement in days, patient was straining) and his urine is yellow/clear with clots during day shift. 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 Vital
signs stable. Patient denies any symptoms such as dizziness, lightheadedness, palpitations. Patient required assistance OOB to chair during the day per RN.
Order in for am CBC,BMP, Hematest. Continue to trend hgb, vital signs and if patient becomes symptomatic.
[2025-05-18 03:05] LABS: Glucose - Point of Care 133 mg/dl (70-99)
--- NOTE | 2025-05-18 06:08 | PTCARENOTE ---
Pt aaox3 able to make his needs known.On bed alarm for safety.Pt urine noted with small clotts at times,[employer] commissioning engineer was made aware of it & labs ordered for pt. Pt asymptomatic,heparin subcutaneous was held overnight.Pt denies of any problems. Call
pugh in reach.
[2025-05-18 06:54] LABS: Hematocrit 33.4 % (39.0-52.0); Hemoglobin 11.1 g/dL (13.0-18.0); Mean Corp Hgb Conc. 33.2 g/dL (33.0-37.0); Mean Corpuscular Volume 95.2 fL (80.0-94.0); Nucleated Red Blood Cells % 0 % (-); Platelet Count 208 10^3/uL (130-400); Red Cell Dist. Width 13.2 % (11.5-14.5)
[2025-05-18 07:27] LABS: Glucose - Point of Care 115 mg/dl (70-99)
[2025-05-18 07:30] VITALS: BP 141/76
[2025-05-18] MEDS: FARXIGA 10 MG PO (08:06)
[2025-05-18] MEDS: ASPIR LOW (ENTERIC COATED) 81 MG PO (08:07)
[2025-05-18] MEDS: COLACE 100 MG PO ×2 (08:07→19:40)
[2025-05-18] MEDS: PLAVIX 75 MG PO (08:07)
[2025-05-18] MEDS: TRICOR 145 MG PO (08:08)
[2025-05-18] MEDS: TRANDATE 400 MG PO ×2 (08:08→19:39)
[2025-05-18] MEDS: DIOVAN 320 MG PO (08:11)
[2025-05-18] MEDS: NORVASC 5 MG PO (08:11)
[2025-05-18] MEDS: DESENEX/MITRAZOL/ZEASORB 1 APPLIC TOPICAL ×2 (08:14→19:41)
[2025-05-18 08:53] LABS: Blood Urea Nitrogen 46 mg/dl (9-20); Calcium 8.9 mg/dl (8.4-10.2); Carbon Dioxide 26 mmol/L (22-30); Chloride 109 mmol/L (98-107); Estimated Creatinine Clearance 27 ml/min; Glucose 113 mg/dl (70-99); Potassium 4.2 mmol/L (3.5-5.1); Sodium 141 mmol/L (135-145); eGFR 26.78
[2025-05-18] MEDS: NOVOLOG FLEXPEN 10 UNITS SC ×3 (09:27→17:54)
[2025-05-18] MEDS: NOVOLOG FLEXPEN-MODERATE RESISTANCE SC (09:28)
[2025-05-18] MEDS: HEPARIN SC (09:34)
[2025-05-18] MEDS: LASIX 10 MG PO ×2 (09:34→16:59)
[2025-05-18 12:43] LABS: Glucose - Point of Care 170 mg/dl (70-99)
[2025-05-18] MEDS: NOVOLOG FLEXPEN-MODERATE RESISTANCE 1 UNITS SC ×2 (13:13→17:55)
--- NOTE | 2025-05-18 14:00 | CM ---
Patient seen at bedside with
spoke with Alicia beltran from [facility], bed avail tomorrow
no pre-auth
patient & agreeable
IMM explained & signed. In chart.
states she will transport
tt hospitalist
PLAN: [facility] SNF tomorrow
Report #: [phone] ext [phone]
Fax #: [phone]
to transport
--- NOTE | 2025-05-18 14:24 | W.PN.HOSP.TC ---
Today's Communication/Plan
-
Assessment / Plan
Assessment / Plan
General: No Apparent Distress, Comfortable and Conversant
HEENT: NormoCephalic, Moist mucous membranes, Atraumatic
Respiratory: Clear and Non Labored Respirations
Cardiac: S1/S2 and Regular Rhythm; No Rub or Gallop
GI: Soft, Non Tender, Non Distended and Normal Bowel Sounds
Musculoskeletal: No Edema, right finger amputation x4
Skin: Warm and dry
: NO Barrow
Neuro: Awake, Alert, Nonfocal/grossly intact
Psych: Calm and Intact Judgment/Insight
Mr. Chiu is a 80-year-old male with a medical history of stroke, hypertension, insulin-dependent diabetes mellitus, CKD stage IIIb, and lumbar spinal stenosis who presented with ambulatory dysfunction due to bilateral lower extremity weakness.
His symptoms began after a fall in December 2024 and have progressed since that time leading to multiple subsequent falls. He was seen by an orthopedist in February for treatment with cortisone injections but has not had recent follow-up. He has been
doing physical therapy. Over the past 3 days prior to arrival his lower extremity weakness has become more severe, now to the point where he is unable to ambulate even with assistance of his walker.
Lower extremity weakness:
- Suspect due to known lumbar spinal stenosis
- Repeat lumbar MRI stable from previous, can follow-up as outpatient with neurosurgery/orthopedics
- PT/OT recommending SNF
- His weakness is improving but still significantly limiting his ability to ambulate, medically stable for discharge to SNF
Hematuria:
- Intermittent with small amount of clots
- Unremarkable ultrasound of kidneys and bladder evidence of medical renal disease
- No evidence of urinary retention
- Urologist notified, patient will be referred for outpatient follow-up
Insulin-dependent diabetes mellitus:
- Continue long and short acting insulin, Jardiance
- Accu-Cheks, additional sliding scale as needed
- Hemoglobin A1c 8.7% this admission
Cerebrovascular disease:
- History of stroke with no residual deficits
- Continue aspirin and Plavix, high intensity statin
Hypertension:
- Continue home amlodipine 5 mg daily, valsartan 320 mg daily, and labetalol 40 mg twice daily
CKD stage III/IV:
- Function appears at baseline, monitor
DVT prophylaxis: Subcu heparin
CODE STATUS: Full code
Total time spent on today's encounter was 35 minutes
Anticipated Discharge: 24 - 48 hours
Subjective/Interval History
-
Date of Service: May 18, 2025
The patient was seen and examined at bedside this morning. Had some hematuria overnight with small amount of clots which has since resolved. Checking renal bladder ultrasound.
Objective Data
-
Labs:
Laboratory Results
05/18/25
06:11
WBC 5.9
Hgb 11.1 L
Hct 33.4 L
Plt Count 208
Sodium 141
Potassium 4.2
Chloride 109 H
Carbon Dioxide 26
BUN 46 H
Creatinine 2.4 H
Glucose 113 H
Calcium 8.9
Vital Signs:
Vital Signs
Temp Pulse Resp BP Pulse Ox
98.1 F 90 18 141/76 97
05/18/25 07:30 05/18/25 09:34 05/18/25 07:30 05/18/25 09:34 05/18/25 08:30
I&O
05/17/25 05/18/25 05/19/25
06:59 06:59 06:59
Intake Total 840 / 840 900 / 900
Output Total 350 / 350 350 / 350
Balance 490 / 490 550 / 550
Review of Systems
-
History Source: Patient
All other systems: Reviewed and negative
Constitutional: Reports Weakness
Physical Exam
-
General: No Apparent Distress
[2025-05-18 15:19] VITALS: BP 129/58
[2025-05-18 17:12] LABS: Glucose - Point of Care 196 mg/dl (70-99)
[2025-05-18 21:04] LABS: Glucose - Point of Care 247 mg/dl (70-99)
[2025-05-18] MEDS: LIPITOR 80 MG PO (21:57)
[2025-05-18] MEDS: LANTUS 0.3 UNITS SC (22:02)
[2025-05-18 23:45] VITALS: BP 141/56
[2025-05-19 07:55] VITALS: BP 176/76
[2025-05-19 07:55] LABS: Glucose - Point of Care 106 mg/dl (70-99)
[2025-05-19] MEDS: NOVOLOG FLEXPEN-MODERATE RESISTANCE SC (08:00)
[2025-05-19] MEDS: NOVOLOG FLEXPEN 10 UNITS SC ×2 (08:37→12:12)
[2025-05-19] MEDS: TRICOR 145 MG PO (08:38)
[2025-05-19] MEDS: ASPIR LOW (ENTERIC COATED) 81 MG PO (08:38)
[2025-05-19] MEDS: NORVASC 5 MG PO (08:39)
[2025-05-19] MEDS: COLACE 100 MG PO (08:40)
[2025-05-19] MEDS: DIOVAN 320 MG PO (08:40)
[2025-05-19] MEDS: PLAVIX 75 MG PO (08:40)
[2025-05-19] MEDS: LASIX 10 MG PO (08:40)
[2025-05-19] MEDS: TRANDATE 400 MG PO (08:41)
[2025-05-19] MEDS: FARXIGA 10 MG PO (08:41)
[2025-05-19] MEDS: DESENEX/MITRAZOL/ZEASORB 1 APPLIC TOPICAL (08:42)
[2025-05-19 09:55] VITALS: BP 139/61
--- NOTE | 2025-05-19 11:49 | W.DCSUMMARY ---
Discharge Summary
Discharge Data
Date of Admission: 05/15/25
Date of Discharge: 05/19/25
Total time spent discharging patient (in min): 40
-
Pending Results: No
Hospital Course
Mr. Chiu is a 80-year-old male with a medical history of stroke, hypertension, insulin-dependent diabetes mellitus, CKD stage IIIb, and lumbar spinal stenosis who presented with ambulatory dysfunction due to bilateral lower extremity weakness.
His symptoms began after a fall in December 2024 and have progressed since that time leading to multiple subsequent falls. He was seen by an orthopedist in February for treatment with cortisone injections but has not had recent follow-up. He has been
doing physical therapy. Over the past 3 days prior to arrival his lower extremity weakness has become more severe, now to the point where he was unable to ambulate even with assistance of his walker. He was admitted for further evaluation and
management.
Repeat lumbar MRI was stable compared to previous. Neurosurgery recommended outpatient follow-up. He will need ongoing physical therapy which has been arranged for him at a residential facility. At 1 point during his hospitalization he had an
episode of hematuria with clots. Ultrasound imaging of his kidneys and bladder were unremarkable other than evidence of medical renal disease. He was not retaining urine. Urologist was notified and recommended referral for outpatient follow-up.
His blood pressure and renal function remained stable throughout his hospitalization. At time of hospital discharge he was medically stable.
General: No Apparent Distress, Comfortable and Conversant
HEENT: NormoCephalic, Moist mucous membranes, Atraumatic
Respiratory: Clear and Non Labored Respirations
Cardiac: S1/S2 and Regular Rhythm; No Rub or Gallop
GI: Soft, Non Tender, Non Distended and Normal Bowel Sounds
Musculoskeletal: No Edema, right finger amputation x4
Skin: Warm and dry
: NO B[place]
Neuro: Awake, Alert, Nonfocal/grossly intact
Psych: Calm and Intact Judgment/Insight
Discharge Plan
-
Patient Disposition: Long Term/SNF
Discharge Diagnosis/Procedures: Lower extremity weakness
Diet: Diabetic, Carb Controlled
Activity: With assistance and As tolerated
Activity Restrictions/Additional Instructions:
Wound Care Instructions
Gluteal cleft: clean with soap and water, dusting of fungal powder then blot with skin prep to periwound prn yeasty appearing skin. Silicone foam change q 2-3 days and prn soilage.
Air chair cushion when sitting-*Take home upon discharge.
Increase protein in diet
Follow up at wound care center (*If becomes worse) call for an appointment.
Mr. Chiu is a 80-year-old male with a medical history of stroke, hypertension, insulin-dependent diabetes mellitus, CKD stage IIIb, and lumbar spinal stenosis who presented with ambulatory dysfunction due to bilateral lower extremity weakness.
His symptoms began after a fall in December 2024 and have progressed since that time leading to multiple subsequent falls. He was seen by an orthopedist in February for treatment with cortisone injections but has not had recent follow-up. He has been
doing physical therapy. Over the past 3 days prior to arrival his lower extremity weakness has become more severe, now to the point where he was unable to ambulate even with assistance of his walker. He was admitted for further evaluation and
management.
Repeat lumbar MRI was stable compared to previous. Neurosurgery recommended outpatient follow-up. He will need ongoing physical therapy which has been arranged for him at a residential facility. At one point during his hospitalization he had
an episode of hematuria with clots. Ultrasound imaging of his kidneys and bladder were unremarkable other than evidence of medical renal disease. He was not retaining urine. His hematuria resolved. Urologist was notified and recommended referral
for outpatient follow-up. His blood pressure and renal function remained stable throughout his hospitalization. At time of hospital discharge he was medically stable.
Referrals:
Kirstie Caal MD [Family Provider, Family Practice]
Len Amaral MD [Active, Urology]
Referral Note: hematuria
Prescriptions:
Continued
fenofibrate nanocrystallized 145 MG tablet
145 mg PO DAILY
clopidogrel 75 MG tablet
75 mg PO DAILY Qty: 30 0RF
valsartan [Diovan] 320 mg Tablet
320 mg PO DAILY
aspirin 81 mg Tablet
81 mg PO DAILY
insulin aspart U-100 [Novolog FlexPen U-100 Insulin] 100 unit/mL (3 mL) Insulin Pen
0 unit SC TID
Rx Instructions:
10u at breakfast, 10u at lunch, 14u at dinner
atorvastatin 80 MG tablet
80 mg PO HS
amlodipine 5 MG tablet
5 mg PO DAILY
labetalol 200 mg Tablet
400 mg PO BID
insulin glargine [Lantus Solostar U-100 Insulin] 100 unit/mL (3 mL) Insulin Pen
30 unit SC HS
Jardiance 25 mg Tablet
25 mg PO DAILY
furosemide 20 MG tablet
10 mg PO BID AT 0800,1600
therapeutic multivitamin Tablet
1 tab PO DAILY
acetaminophen 500 mg Tablet
500 mg PO DAILYPRN PRN (Reason: shoulder pain)
docusate sodium 100 mg Tablet
100 mg PO DAILYPRN PRN (Reason: constipation)
coenzyme Q10 [Co Q-10] 200 mg Capsule
200 mg PO DAILY
turmeric 400 mg Capsule
400 mg PO DAILY
Discharge Orders:
Discharge Patient (As Directed); Ordered 05/19/25
Ordered By: Olman Starks
Discharge Date and Time
Print Language: FRISIAN
[2025-05-19 12:05] VITALS: BP 127/60
[2025-05-19 12:09] LABS: Glucose - Point of Care 168 mg/dl (70-99)
[2025-05-19] MEDS: NOVOLOG FLEXPEN-MODERATE RESISTANCE 1 UNITS SC (12:13)
--- NOTE | 2025-05-19 12:25 | CM ---
Per admissions at [facility] and there is a bed at [facility] today, spouse to transport.
[facility]
Report #: [phone] ext [phone]
Fax #: [phone]
to transport
== END 2025-05-19 13:03 | DRG 552 ==
LOC: 4 EAST ACU 14:22
PROVIDERS: Physician Assistant Medical; ADMITTING PHYSICIAN Hospitalist; ATTENDING PHYSICIAN Internal Medicine; EMERGENCY PHYSICIAN Emergency Medicine; FAMILY PHYSICIAN Family Medicine
DX: M48.061 Spinal stenosis, lumbar region without neurogenic claudication (principal); R29.6 Repeated falls; I12.9 Hypertensive chronic kidney disease with stage 1 through stage 4 chronic kidney disease, or unspecified chronic kidney disease; N18.32 Chronic kidney disease, stage 3b; E11.22 Type 2 diabetes mellitus with diabetic chronic kidney disease; R31.9 Hematuria, unspecified; R32 Unspecified urinary incontinence; L89.152 Pressure ulcer of sacral region, stage 2; E78.00 Pure hypercholesterolemia, unspecified; Z91.81 History of falling; Z86.73 Personal history of transient ischemic attack (TIA), and cerebral infarction without residual deficits; Z87.891 Personal history of nicotine dependence; Z79.4 Long term (current) use of insulin; Z79.02 Long term (current) use of antithrombotics/antiplatelets; Z79.82 Long term (current) use of aspirin
CPT/HCPCS: 70450; 72110; 72148; 76770; 80048; 80053; 82962; 83036; 85025; 97116; 97167; 97530; 97535; 99285